=== PATIENT | male | born 1950 | race Caucasian/White ===

== ENCOUNTER 2022-12-19 13:09 | Outpatient (CLI) | payer MEDICARE, SELFPAY ==
--- NOTE | ~2022-12-19 | PE_ITS ---
EXAMINATION: PET_PETPSMAST_PT DATE: 12/19/2022 15:29 INDICATION: Prostate cancer TECHNIQUE: 8.197 mCi of pipflufolastat F-18 (18-F-DCFPyL) was administered i.v. Low dose computed to mography (CT) images were acquired from the base of the brain to the base of the brain to the proxima l thighs for attenuation correction and anatomic localization. Positron emission tomography (PET) paulo ges were acquired in the same distribution beginning 97 minutes after injection. Images including fus ed PET/CT images were reconstructed in axial, coronal, and sagittal planes. Automated exposure contro l technique was employed. The dose-length product was 573.73mGy-cm. COMPARISON: None FINDINGS: Head/neck: Typical pattern of symmetric physiologic increased activity in the lacrimal, parotid and submandibula r glands as well as along the mucosa of the nasal and oral cavities, the bijal-, naso- and hypopharynx, the glottis and esophagus. No pathologically enlarged cervical lymphadenopathy or suspicious foci of increased uptake in the visualized head or neck. Chest: Mild respiratory motion and some atelectasis at the bilateral lung bases. No suspicious pulmonary nod ules, pneumonia, pulmonary edema or pleural effusion. Mild cardiomegaly. Atherosclerotic coronary art beba calcific lesion. No pericardial or pleural effusion. Calcified right hilar and mediastinal lymph nodes consistent with old granulomatous disease. No pathologically enlarged or PSMA avid thoracic lym phadenopathy. Prominent bilateral gynecomastia with slightly asymmetric but typical degree of mild le ft-sided predominant increased PSMA uptake. Abdomen/pelvis/proximal thighs: Physiologic renal accumulation and excretion of activity in the kidneys, bladder and along portions o f ureters. There is a photopenic defect associated with a 2 cm cyst at the lower pole of the right ki dney. Normal degree and slightly heterogenous pattern of increased uptake throughout the liver and sp shailesh without radiologic correlate or dominant PSMA avid lesion. The gallbladder, pancreas and bilater al adrenal glands are normal. Moderate uptake scattered throughout the bowels with typical duodenal a nd proximal jejunal predominance and without radiologic correlate, also likely physiologic. Metallic densities in the region of the small prostate which could represent either surgical clips related to prior prostatectomy or brachytherapy seeds. There are 2 small region of left and right-sided increase d PSMA uptake in the region of the prostate which are both peripheral to the contours of the bladder but also with a higher degree of PSMA uptake than in the urine in the bladder consistent with residua l versus locally recurrent disease. On the left the maximal SUV is 25 relative to the maximal uptake in the bladder of 17.6. There is also extension of some increased uptake with maximal SUV of 26.9 int o the right seminal vesicle consistent with local invasion. No other abnormal foci of increased uptak e or pathologically enlarged lymphadenopathy in the abdomen, pelvis or proximal thighs. Musculoskeletal: Scattered degenerative skeletal changes as well as bridging osteophytes at multiple levels in the spi ne, consistent with diffuse idiopathic skeletal hyperostosis (DISH). No suspicious lytic, blastic or PSMA avid bone lesions. IMPRESSION: 1. 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 No other more remote metastatic disease. Reviewed, dictated and finalized at location A. IMPRESSION: 1. Prominent increased uptake in the left side of the prostate and in the right seminal vesicle consistent with residual/locally recurrent disease with l
== END 2022-12-19 13:10 | disposition home or self-care (01) ==
PROVIDERS: PCP Family Medicine
DX: C61 Malignant neoplasm of prostate (principal)
CPT/HCPCS: 78815; A9595